=== PATIENT | female | born 1985 | race Caucasian/White ===

== ENCOUNTER 2024-01-26 11:57 | Outpatient (CLI) | payer BC, SELFPAY ==
--- NOTE | ~2024-01-26 | XR_ITS ---
XR hand RT min 3V DATE: 01/26/2024 12:25 INDICATION: Lateral wrist pain for one week TECHNIQUE: 3 views COMPARISON: None FINDINGS: No fracture or dislocation, periosteal reaction or bone destruction, erosive change or godfrey drocalcinosis. Joint spaces are preserved. IMPRESSION: Negative Reviewed, dictated and finalized at location B. IMPRESSION: Negative
--- NOTE | ~2024-01-26 | XR_ITS ---
XR wrist RT min 3V DATE: 01/26/2024 12:25 INDICATION: Lateral wrist pain for one week. No injury. TECHNIQUE: 4 views COMPARISON: None FINDINGS: No fracture, dislocation, periosteal reaction or bone destruction, joint space narrowing, e rosive change or chondrocalcinosis. IMPRESSION: Negative Reviewed, dictated and finalized at location B. IMPRESSION: Negative
== END 2024-01-26 11:58 ==
PROVIDERS: PCP Chiropractor Rehabilitation; Visit Provider Chiropractor Rehabilitation
DX: M25.531 Pain in right wrist (principal)
CPT/HCPCS: 73110; 73130